=== PATIENT | male | born 1970 | race Caucasian/White ===

== ENCOUNTER 2020-08-14 09:06 | Inpatient (IN) | payer OTHER ==
[2020-08-14 10:20] VITALS: BMI 35.6
[2020-08-14] MEDS ORDERED: MENTHOL/PHENOL 1 EACH UD MM PRN (12:42)
[2020-08-14] MEDS ORDERED: BISMUTH SUBSALICYLATE 524 MG/30 ML UD PO PRN (12:42)
[2020-08-14] MEDS ORDERED: ONDANSETRON *ODT* 4 MG TABLET SL PRN (12:42)
[2020-08-14] MEDS ORDERED: MAG HYDROX/AL HYDROX/SIMETH 30 ML UNIT-DOSE CUP PO PRN (12:42)
[2020-08-14] MEDS ORDERED: ACETAMINOPHEN 325 MG TABLET (FP) PO PRN (12:42)
[2020-08-14] MEDS ORDERED: MAGNESIUM CITRATE 300 ML BOTTLE PO PRN (12:42)
[2020-08-14] MEDS ORDERED: MAGNESIUM HYDROX 2400MG/30ML ORAL SUSPENSION 30 ML CUP PO PRN (12:42)
[2020-08-14] MEDS ORDERED: hydrOXYzine PAMOATE 25 MG CAPSULE (FP) PO PRN (12:42)
[2020-08-14] MEDS ORDERED: LORazepam 2 MG TABLET PO ONE (12:42)
[2020-08-14] MEDS ORDERED: LORazepam 1 MG TABLET PO PRN (12:42)
[2020-08-14] MEDS ORDERED: LACTULOSE 20 GM/30 ML UDC (FOR ORAL USE ONLY) PO PRN (12:48)
[2020-08-14] MEDS: SPIRONOLACTONE 25 MG TABLET PO SCH (14:48)
[2020-08-14] MEDS: GABAPENTIN 300 MG CAPSULE PO SCH ×2 (14:48→23:01)
[2020-08-14] MEDS: RIFAXIMIN 550 MG TABLET (UD) PO SCH (14:48)
[2020-08-14] MEDS: SULFAMETHOXAZOLE/TRIMETHOPRIM 800MG/160MG D.S. TABLET PO SCH (14:48)
[2020-08-14] MEDS: EMTRICITABINE 200MG/TENOFOVIR 300MG PO SCH (14:49)
[2020-08-14] MEDS: SILVER SULFADIAZINE 1% TOP CREAM 50 GM JAR TP SCH (14:49)
[2020-08-14] MEDS: LORazepam 2 MG TABLET PO SCH ×2 (18:03→23:01)
[2020-08-14] MEDS ORDERED: MELATONIN 5 MG TABLETS PO SCH (22:00)
[2020-08-14] MEDS: THIAMINE HCL 100 MG TABLET (FP) PO SCH (23:01)
[2020-08-14] MEDS: MELATONIN 5 MG TABLETS PO SCH (23:02)
[2020-08-15] MEDS: GABAPENTIN 300 MG CAPSULE PO SCH ×3 (05:14→22:54)
[2020-08-15] MEDS: LORazepam 2 MG TABLET PO SCH ×4 (05:14→22:55)
[2020-08-15] MEDS: FUROSEMIDE 40 MG TABLET (FP) PO SCH (11:22)
[2020-08-15] MEDS: SULFAMETHOXAZOLE/TRIMETHOPRIM 800MG/160MG D.S. TABLET PO SCH (11:22)
[2020-08-15] MEDS: SPIRONOLACTONE 25 MG TABLET PO SCH (11:22)
[2020-08-15] MEDS: SILVER SULFADIAZINE 1% TOP CREAM 50 GM JAR TP SCH (11:23)
[2020-08-15] MEDS: PRENATAL VITAMINS W/ FOLIC ACID TABLET (FP) PO SCH (11:23)
[2020-08-15] MEDS: RIFAXIMIN 550 MG TABLET (UD) PO SCH (11:23)
[2020-08-15] MEDS: EMTRICITABINE 200MG/TENOFOVIR 300MG PO SCH (11:23)
[2020-08-15 16:52] LABS: HEMATOCRIT 29.3 % (35.4-49); HEMOGLOBIN 10.3 GM/dL (11.7-16.9); MCH 39.1 pg (25.7-33.7); MEAN CELL VOLUME 111.6 fl (80-96); MEAN PLT VOLUME 10.3 fl (7.5-11.1); PLATELET COUNT 52 K/MM3 (134-434); RBC 2.63 M/mm3 (4.00-5.60); RDW 14.8 % (11.9-15.9); WHITE BLOOD COUNT 2.5 K/mm3 (4.0-10.0)
[2020-08-15 16:55] LABS: POTASSIUM 3.7 mmol/L (3.5-5.1)
[2020-08-15 17:00] LABS: ALBUMIN 2.1 g/dl (3.4-5.0); CALCIUM 8.2 mg/dL (8.5-10.1)
[2020-08-15 17:01] LABS: BLOOD UREA NITROGEN 7.9 mg/dL (7-18)
[2020-08-15 17:04] LABS: CREATININE 0.8 mg/dL (0.55-1.3)
[2020-08-15 17:05] LABS: BILIRUBIN,TOTAL 11.7 mg/dL (0.2-1); TOT PROT 6.6 g/dl (6.4-8.2)
[2020-08-15] MEDS: THIAMINE HCL 100 MG TABLET (FP) PO SCH (22:54)
[2020-08-15] MEDS: MELATONIN 5 MG TABLETS PO SCH (22:54)
[2020-08-15] MEDS: LACTULOSE 20 GM/30 ML UDC (FOR ORAL USE ONLY) PO SCH (22:54)
[2020-08-16] MEDS: LORazepam 1 MG TABLET PO SCH ×4 (06:59→22:57)
[2020-08-16] MEDS: GABAPENTIN 300 MG CAPSULE PO SCH ×3 (07:00→22:57)
[2020-08-16] MEDS: SPIRONOLACTONE 25 MG TABLET PO SCH (10:40)
[2020-08-16] MEDS: SULFAMETHOXAZOLE/TRIMETHOPRIM 800MG/160MG D.S. TABLET PO SCH (10:40)
[2020-08-16] MEDS: RIFAXIMIN 550 MG TABLET (UD) PO SCH (10:41)
[2020-08-16] MEDS: FUROSEMIDE 40 MG TABLET (FP) PO SCH (10:41)
[2020-08-16] MEDS: LACTULOSE 20 GM/30 ML UDC (FOR ORAL USE ONLY) PO SCH ×4 (10:42→22:59)
[2020-08-16] MEDS: PRENATAL VITAMINS W/ FOLIC ACID TABLET (FP) PO SCH (10:43)
[2020-08-16] MEDS: SILVER SULFADIAZINE 1% TOP CREAM 50 GM JAR TP SCH (10:43)
[2020-08-16] MEDS: EMTRICITABINE 200MG/TENOFOVIR 300MG PO SCH (10:43)
[2020-08-16 10:52] LABS: POTASSIUM 3.7 mmol/L (3.5-5.1)
[2020-08-16 10:57] LABS: ALBUMIN 2.1 g/dl (3.4-5.0); BLOOD UREA NITROGEN 8.9 mg/dL (7-18); CALCIUM 8.2 mg/dL (8.5-10.1)
[2020-08-16 10:58] LABS: INR 2.53 (0.83-1.09); PROTHROMBIN TIME (PATIENT) 30.3 SEC (9.7-13.0)
[2020-08-16 11:02] LABS: BILIRUBIN,TOTAL 12.8 mg/dL (0.2-1); TOT PROT 6.9 g/dl (6.4-8.2)
[2020-08-16 11:07] LABS: HEMATOCRIT 30.9 % (35.4-49); HEMOGLOBIN 10.8 GM/dL (11.7-16.9); MCH 39.3 pg (25.7-33.7); MEAN CELL VOLUME 112.2 fl (80-96); MEAN PLT VOLUME 10.5 fl (7.5-11.1); PLATELET COUNT 55 K/MM3 (134-434); RBC 2.76 M/mm3 (4.00-5.60); RDW 14.9 % (11.9-15.9); WHITE BLOOD COUNT 3.1 K/mm3 (4.0-10.0)
[2020-08-16] MEDS: MELATONIN 5 MG TABLETS PO SCH (22:57)
[2020-08-16] MEDS: THIAMINE HCL 100 MG TABLET (FP) PO SCH (22:57)
[2020-08-17] MEDS ORDERED: LORazepam 0.5 MG TABLET PO PRN
[2020-08-17] MEDS: GABAPENTIN 300 MG CAPSULE PO SCH ×3 (06:07→22:31)
[2020-08-17] MEDS: LORazepam 0.5 MG TABLET PO SCH ×4 (06:07→22:31)
[2020-08-17] MEDS: SPIRONOLACTONE 25 MG TABLET PO SCH (10:25)
[2020-08-17] MEDS: SILVER SULFADIAZINE 1% TOP CREAM 50 GM JAR TP SCH (10:26)
[2020-08-17] MEDS: SULFAMETHOXAZOLE/TRIMETHOPRIM 800MG/160MG D.S. TABLET PO SCH (10:26)
[2020-08-17] MEDS: FUROSEMIDE 40 MG TABLET (FP) PO SCH (10:26)
[2020-08-17] MEDS: LACTULOSE 20 GM/30 ML UDC (FOR ORAL USE ONLY) PO SCH ×4 (10:26→22:32)
[2020-08-17] MEDS: PRENATAL VITAMINS W/ FOLIC ACID TABLET (FP) PO SCH (10:26)
[2020-08-17] MEDS: EMTRICITABINE 200MG/TENOFOVIR 300MG PO SCH (10:27)
[2020-08-17] MEDS: RIFAXIMIN 550 MG TABLET (UD) PO SCH (10:27)
[2020-08-17 18:55] LABS: POTASSIUM 3.5 mmol/L (3.5-5.1)
[2020-08-17 18:58] LABS: CALCIUM 8.1 mg/dL (8.5-10.1)
[2020-08-17 18:59] LABS: ALBUMIN 2.3 g/dl (3.4-5.0); BLOOD UREA NITROGEN 9.3 mg/dL (7-18)
[2020-08-17 19:03] LABS: TOT PROT 7.1 g/dl (6.4-8.2)
[2020-08-17 19:06] LABS: BILIRUBIN,TOTAL 10.3 mg/dL (0.2-1)
[2020-08-17 19:11] LABS: BASO % 0.8 % (0-2.0); EOS % 4.8 % (0-4.5); HEMATOCRIT 30.3 % (35.4-49); HEMOGLOBIN 10.8 GM/dL (11.7-16.9); LYMPH % 18.5 % (8-40); MCH 39.5 pg (25.7-33.7); MCHC 35.7 g/dl (32.0-35.9); MEAN CELL VOLUME 110.8 fl (80-96); MEAN PLT VOLUME 11.8 fl (7.5-11.1); MONO % 8.5 % (3.8-10.2); NEUT % 67.4 % (42.8-82.8); PLATELET COUNT 60 K/MM3 (134-434); RBC 2.74 M/mm3 (4.00-5.60); RDW 15.1 % (11.9-15.9)
[2020-08-17 19:32] LABS: INR 3.36 (0.83-1.09); PROTHROMBIN TIME (PATIENT) 39.3 SEC (9.7-13.0)
[2020-08-17 21:26] LABS: MACROCYTOSIS 3+; PLATELET ESTIMATE MOD DECREASED
[2020-08-17] MEDS: THIAMINE HCL 100 MG TABLET (FP) PO SCH (22:31)
[2020-08-17] MEDS: MELATONIN 5 MG TABLETS PO SCH (22:32)
[2020-08-18] MEDS ORDERED: LORazepam 0.5 MG TABLET PO ONE (05:00)
[2020-08-18] MEDS: GABAPENTIN 300 MG CAPSULE PO SCH (05:41)
[2020-08-18 09:11] VITALS: BP 116/55; PULSE 79; TEMP 96.2
== END 2020-08-18 09:51 | disposition home or self-care (01) | DRG 897 ==
LOC: YASAS 09:06 → Y6N 12:26
PROVIDERS: ADMIT Allergy & Immunology; ATTEND Allergy & Immunology
PROC: HZ2ZZZZ Detoxification Services for Substance Abuse Treatment (ICD-10-PCS; principal; 2020-08-14)
DX: F10.230 Alcohol dependence with withdrawal, uncomplicated (principal); F14.20 Cocaine dependence, uncomplicated; D61.818 Other pancytopenia; F19.282 Other psychoactive substance dependence with psychoactive substance-induced sleep disorder; R17 Unspecified jaundice; F20.9 Schizophrenia, unspecified; D69.6 Thrombocytopenia, unspecified; G62.9 Polyneuropathy, unspecified; I10 Essential (primary) hypertension; K70.31 Alcoholic cirrhosis of liver with ascites; K64.9 Unspecified hemorrhoids; K42.9 Umbilical hernia without obstruction or gangrene; K70.30 Alcoholic cirrhosis of liver without ascites; B18.2 Chronic viral hepatitis C; M54.5 Low back pain; G89.29 Other chronic pain; M19.90 Unspecified osteoarthritis, unspecified site; R74.8 Abnormal levels of other serum enzymes; R79.89 Other specified abnormal findings of blood chemistry; Z59.0 Homelessness
CPT/HCPCS: 36415; 80053; 82140; 85025; 85027; 85610; 86780; 93005; 93010; C9803; U0003